=== PATIENT | male | born 1970 | race African-American/Black ===

== ENCOUNTER 2024-03-21 22:33 | Emergency (ER) | payer SELFPAY ==
[~2024-03-21] VITALS: Ht 185.4 cm; Wt 96.0 kg
[2024-03-21] MEDS: ONDANSETRON HCL 4MG/2ML INJ IV STA (22:48)
[2024-03-21 22:52] VITALS: BP 120/79; PULSE 58; RESP 18; TEMP 98.1; O2SAT 98
[2024-03-21] MEDS: ACETAMINOPHEN 1000MG/100ML 100 ML IV ONE (23:00)
[2024-03-22 00:02] LABS: BASOPHILS % 1.1 % (0.0-2.0); EOSINOPHILS % 1.1 % (0.0-5.0); HEMATOCRIT. 40.8 % (42.0-52.0); HEMOGLOBIN. 14.1 g/dL (14.0-18.0); LYMPHOCYTES % 26.4 % (20.0-50.0); MEAN CORPUSCULAR HGB CONC 34.5 g/dL (31.0-37.0); MEAN CORPUSCULAR VOLUME 89.9 fL (80.0-94.0); MEAN PLATELET VOLUME 7.8 fl (7.4-10.4); MONOCYTES % 6.8 % (2.0-8.0); NEUTROPHILS % 64.6 % (40.0-76.0); PLATELET 242 x1000/uL (130-400); RED BLOOD CELL COUNT 4.54 mill/uL (4.7-6.1); RED CELL DISTRIBUTION WIDTH 14.8 % (11.6-14.6); WHITE BLOOD COUNT 5.9 x1000/uL (4.5-11.0)
[2024-03-22 00:04] LABS: CHLORIDE 109 mEq/L (98-107); POTASSIUM 3.5 mEq/L (3.5-5.1); SODIUM 143 mEq/L (136-145)
[2024-03-22 00:05] LABS: CARBON DIOXIDE 26 mEq/L (21-32)
[2024-03-22 00:06] LABS: CALCIUM 9.7 mg/dL (8.7-10.4)
[2024-03-22 00:10] LABS: GLUCOSE 94 mg/dL (70-105); UREA NITROGEN BLOOD 12 mg/dL (9-23)
[2024-03-22 00:12] LABS: ACETAMINOPHEN < 2 ug/mL (10-30); AMMONIA 21 uMol/L (<32)
[2024-03-22 00:20] LABS: ETHANOL BLOOD 340 mg/dL (<10)
[2024-03-22] MEDS ORDERED: AMOX1TAB16 MT (03:31)
[2024-03-22] MEDS ORDERED: IBUP-2029 MT (03:31)
[2024-03-22] MEDS: AMOXICILLIN/POTASSIUM CLAVULANATE 875/125MG TAB PO SCH (03:41)
[2024-03-22] MEDS: TETANUS, DIPHTHERIA, PERTUSSIS VAC/PF 0.5ML (>10YR OLD) IM ONE (03:42)
== END 2024-03-22 03:50 | disposition home or self-care (01) ==
LOC: ER 22:33
DX: S02.2XXA Fracture of nasal bones, initial encounter for closed fracture (principal); S00.83XA Contusion of other part of head, initial encounter; F10.129 Alcohol abuse with intoxication, unspecified; W22.09XA Striking against other stationary object, initial encounter; Y93.89 Activity, other specified; Y92.89 Other specified places as the place of occurrence of the external cause; Y99.8 Other external cause status; Y90.9 Presence of alcohol in blood, level not specified
CPT/HCPCS: 80048; 80307; 80329; 80320; 82140; 85025; 36415; 70450; 70486; 99284; J2405; Z7610; G0480; J0131